=== PATIENT | male | born 1950 | race Caucasian/White ===

== ENCOUNTER 2017-01-28 14:34 | Inpatient (IN) | payer OTHER, BC ==
[~2017-01-28] VITALS: Ht 172.7 cm; Wt 75.3 kg
[~2017-01-28 14:34] MED LIST: ASPIR 8181 MG PO; CLINDAMYCIN HC300 MG PO; COL100 PO; ENALAPRIL MALEAT5 MG PO; IMBRUVICA140 MG PO; LAC PO; LEVAQUIN750 MG PO; PRI20 PO; SPIRIVA18 MC1 INH; ZOCOR40 MG PO
[2017-01-28 16:20] LABS: POTASSIUM SERUM 4.3 mmol/L (3.5-5.1); SODIUM SERUM 143 mmol/L (136-145)
[2017-01-28 16:21] LABS: CALCIUM 8.7 mg/dL (8.5-10.1); CHLORIDE SERUM 106 mmol/L (98-107); CREATININE SERUM 0.9 mg/dL (0.7-1.3); GFR1 > 60 mL/min; GLUCOSE SERUM 81 mg/dL (74-106)
[2017-01-28 16:32] LABS: ALKALINE PHOSPHATASE 197 U/L (46-116); ALT/SGPT 45 U/L (16-63); AST/SGOT 33 U/L (15-37); BILIRUBIN TOTAL 1.7 mg/dL (0.20-1.00); TOTAL PROTEIN, SERUM 6.5 g/dL (6.4-8.2)
[2017-01-28 16:33] LABS: ALBUMIN 2.7 g/dL (3.4-5.0); BASOPHIL % 0.6 % (0-2)
[2017-01-28 16:36] LABS: PLATELET COUNT 74 x10^3mcL (130-400); RED CELL DISTRIBUTION WIDTH 18.8 % (11.5-14.5)
[2017-01-28] MEDS ORDERED: PANTOPRAZOLE SO40 M1 PO (16:54)
[2017-01-28] MEDS ORDERED: CARVEDILOL3.125 M1 PO (16:54)
[2017-01-28] MEDS ORDERED: DOXYCYCLINE HY100 MG PO ×2 (16:55→22:23)
[2017-01-28] MEDS ORDERED: ENALAPRIL MALEAT5 MG PO (16:55)
[2017-01-28] MEDS ORDERED: IMBRUVICA140 MG PO (16:56)
[2017-01-28] MEDS ORDERED: ASPIR 8181 MG PO (16:56)
[2017-01-28] MEDS ORDERED: FUROSEMIDE20 MG PO (16:57)
[2017-01-28 18:06] LABS: microscopic required? YES; urine erythrocyte NEGATIVE (NEGATIVE)
[2017-01-28 18:27] LABS: AMPHETAMINE QUAL UR NONE DETECTED (NEG <=1000)
[2017-01-28 18:59] LABS: T3 TOTAL 0.89 ng/mL
[2017-01-28 19:10] LABS: MAGNESIUM 2.2 mg/dL (1.8-2.4); PHOSPHOROUS 3.2 mg/dL (2.5-4.9)
[2017-01-28 19:11] LABS: CHOLESTEROL/HDL RATIO 2.8
[2017-01-28 19:14] LABS: FREE T4 1.59 ng/dL (0.76-1.46); FREE THYROXINE INDEX 3.6 ug/dL (1.4-4.5); T4(THYROXINE) 9.6 ug/dL (4.7-13.3)
[2017-01-28 19:54] VITALS: BP 135/75
[2017-01-28 20:02] VITALS: Ht 172.7 cm; Wt 75.3 kg
[2017-01-28] MEDS ORDERED: TESTOSTERON200 MG/ML IM (22:20)
[2017-01-29 00:06] VITALS: BP 135/75
[2017-01-29 05:57] VITALS: BP 115/56
[2017-01-29 06:04] LABS: PLATELET COUNT 66 x10^3mcL (130-400)
[2017-01-29 06:14] LABS: CALCIUM 7.9 mg/dL (8.5-10.1); CARBON DIOXIDE 27.3 mmol/L (21-32); CHLORIDE SERUM 110 mmol/L (98-107); CREATININE SERUM 0.7 mg/dL (0.7-1.3); GFR1 > 60 mL/min; GLUCOSE SERUM 70 mg/dL (74-106); POTASSIUM SERUM 4.2 mmol/L (3.5-5.1); SODIUM SERUM 144 mmol/L (136-145)
[2017-01-29 06:34] LABS: BAND NEUTROPHIL 4 % (0-10); BASOPHIL 0 % (0-2); MONOCYTE 4 % (0-7); SEGMENTED NEUTROPHILS 63 % (37-75); rbc morphology (normal/abnorm) ABNORMAL (NORMAL)
[2017-01-29 10:19] VITALS: BP 151/70
[2017-01-29 13:25] VITALS: BP 140/85
[2017-01-29 16:45] VITALS: BP 140/84
[2017-01-29 21:37] VITALS: BP 128/61
[2017-01-30 05:13] VITALS: BP 120/71
[2017-01-30 06:34] LABS: CALCIUM 7.7 mg/dL (8.5-10.1); CARBON DIOXIDE 27.6 mmol/L (21-32); CHLORIDE SERUM 109 mmol/L (98-107); CREATININE SERUM 0.7 mg/dL (0.7-1.3); GFR1 > 60 mL/min; GLUCOSE SERUM 73 mg/dL (74-106); POTASSIUM SERUM 4.1 mmol/L (3.5-5.1); SODIUM SERUM 144 mmol/L (136-145)
[2017-01-30 07:27] LABS: PLATELET COUNT 65 x10^3mcL (130-400); RED CELL DISTRIBUTION WIDTH 18.6 % (11.5-14.5)
[2017-01-30 09:04] VITALS: BP 130/62
[2017-01-30 09:34] LABS: BAND NEUTROPHIL 9 % (0-10); BASOPHIL 0 % (0-2); MONOCYTE 5 % (0-7); SEGMENTED NEUTROPHILS 63 % (37-75)
[2017-01-30 09:35] LABS: rbc morphology (normal/abnorm) ABNORMAL (NORMAL); tear drop cell (dacryocyte) 1+
[2017-01-30 13:50] VITALS: BP 138/71
[2017-01-30 18:20] VITALS: BP 121/76
[2017-01-30 21:07] VITALS: BP 130/66
[2017-01-31 05:14] VITALS: BP 130/70
[2017-01-31 06:38] LABS: CALCIUM 7.8 mg/dL (8.5-10.1); CARBON DIOXIDE 26.5 mmol/L (21-32); CHLORIDE SERUM 108 mmol/L (98-107); CREATININE SERUM 0.7 mg/dL (0.7-1.3); GFR1 > 60 mL/min; GLUCOSE SERUM 75 mg/dL (74-106); MAGNESIUM 2.1 mg/dL (1.8-2.4); PLATELET COUNT 59 x10^3mcL (130-400); POTASSIUM SERUM 3.6 mmol/L (3.5-5.1); RED CELL DISTRIBUTION WIDTH 18.5 % (11.5-14.5); SODIUM SERUM 139 mmol/L (136-145)
[2017-01-31 08:05] LABS: BAND NEUTROPHIL 8 % (0-10); BASOPHIL 0 % (0-2); MONOCYTE 9 % (0-7); SEGMENTED NEUTROPHILS 65 % (37-75); rbc morphology (normal/abnorm) ABNORMAL (NORMAL)
[2017-01-31 08:45] VITALS: BP 140/60
[2017-01-31 16:15] VITALS: BP 140/60
[2017-01-31 17:11] VITALS: BP 131/64
[2017-01-31 21:12] VITALS: BP 124/49
[2017-02-01 05:35] VITALS: BP 112/72
[2017-02-01 06:42] LABS: CALCIUM 7.7 mg/dL (8.5-10.1); CARBON DIOXIDE 30.1 mmol/L (21-32); CHLORIDE SERUM 110 mmol/L (98-107); CREATININE SERUM 0.8 mg/dL (0.7-1.3); GFR1 > 60 mL/min; GLUCOSE SERUM 75 mg/dL (74-106); POTASSIUM SERUM 3.5 mmol/L (3.5-5.1); SODIUM SERUM 144 mmol/L (136-145)
[2017-02-01 07:05] LABS: BASOPHIL % 0.6 % (0-2); PLATELET COUNT 58 x10^3mcL (130-400); RED CELL DISTRIBUTION WIDTH 19.1 % (11.5-14.5)
[2017-02-01 09:41] VITALS: BP 133/68
[2017-02-01 17:16] VITALS: BP 132/78
[2017-02-01 21:14] VITALS: BP 149/80
[2017-02-02 05:30] VITALS: BP 157/62
[2017-02-02 06:53] LABS: BASOPHIL % 0.6 % (0-2)
[2017-02-02 06:56] LABS: PLATELET COUNT 64 x10^3mcL (130-400)
[2017-02-02 07:16] LABS: CALCIUM 7.9 mg/dL (8.5-10.1); CHLORIDE SERUM 108 mmol/L (98-107); CREATININE SERUM 0.8 mg/dL (0.7-1.3); GFR1 > 60 mL/min; GLUCOSE SERUM 100 mg/dL (74-106); MAGNESIUM 2.1 mg/dL (1.8-2.4); PHOSPHOROUS 1.9 mg/dL (2.5-4.9); POTASSIUM SERUM 3.2 mmol/L (3.5-5.1); SODIUM SERUM 144 mmol/L (136-145)
[2017-02-02 09:27] VITALS: BP 127/69
[2017-02-02] MEDS ORDERED: CLINDAMYCIN HC300 MG PO (09:42)
[2017-02-02] MEDS ORDERED: LEVAQUIN750 MG PO (09:42)
[2017-02-02] MEDS ORDERED: LAC PO (09:43)
[2017-02-02 09:51] VITALS: BP 127/69
[2017-02-02] MEDS ORDERED: NITROFURANTOIN100 MG PO (12:56)
== END 2017-02-02 15:00 | disposition home or self-care (01) | DRG 177 ==
LOC: ED 14:34 → DU 17:15 → MU 01-30 23:51
PROVIDERS: Emergency Medicine; Family Medicine; ADMIT Family Medicine
DX: J69.0 Pneumonitis due to inhalation of food and vomit (principal); E43 Unspecified severe protein-calorie malnutrition; N17.0 Acute kidney failure with tubular necrosis; D61.810 Antineoplastic chemotherapy induced pancytopenia; J96.21 Acute and chronic respiratory failure with hypoxia; I50.43 Acute on chronic combined systolic (congestive) and diastolic (congestive) heart failure; G71.0 Muscular dystrophy; C95.91 Leukemia, unspecified, in remission; N39.0 Urinary tract infection, site not specified; R65.10 Systemic inflammatory response syndrome (SIRS) of non-infectious origin without acute organ dysfunction; K21.9 Gastro-esophageal reflux disease without esophagitis; E86.0 Dehydration; E78.00 Pure hypercholesterolemia, unspecified; I11.0 Hypertensive heart disease with heart failure; E80.6 Other disorders of bilirubin metabolism; Z93.1 Gastrostomy status; Z95.0 Presence of cardiac pacemaker; Z79.82 Long term (current) use of aspirin; Z68.25 Body mass index [BMI] 25.0-25.9, adult; Z87.891 Personal history of nicotine dependence; Z91.19 Patient's noncompliance with other medical treatment and regimen
CPT/HCPCS: 36600; 83880; 84439; 92610-GN; 94150; 97110-GP; 97116-GP; 97530-GP; J0696; J1956; J2543; J3490; J7030; J7620; J7626; Q0092